=== PATIENT | female | born 1985 | race Caucasian/White ===

== ENCOUNTER 2017-05-24 06:35 | Inpatient (IN) | payer BC ==
[2017-05-24] MEDS ORDERED: DINOPROSTONE 10 MG VAGINAL SUPPOSITORY VG ONE (08:47)
[2017-05-24 08:49] VITALS: BMI 32.6
[2017-05-24] MEDS ORDERED: AMPICILLIN - 100 ML IVPB ONE (10:00)
[2017-05-24] MEDS ORDERED: TUBERCULIN PPD 5 TU/0.1ML SYRINGE (IN PATIENT USE ONLY) ID ONE (10:00)
[2017-05-24 10:11] LABS: BASOPHIL 0.7 % (0-2.0); EOSINOPHIL 0.9 % (0-4.5); MCHC 34.4 g/dl (32.0-36.0); MEAN CELL VOLUME 84.6 fl (80-96); MEAN PLT VOLUME 9.5 fl (7.5-11.1); NEUTROPHILS 66.6 % (42.8-82.8); PLATELET COUNT 260 K/MM3 (134-434); RDW 14.7 % (11.6-15.6); WHITE BLOOD COUNT 8.5 K/mm3 (4.0-10.0)
[2017-05-24 10:35] LABS: ANION GAP 7 (8-16); CALCIUM 9.1 mg/dL (8.5-10.1); CO2 23 mmol/L (21-32); CREATININE 0.5 mg/dL (0.55-1.02); GLUCOSE,RANDOM 83 mg/dL (74-106)
[2017-05-24 10:39] LABS: INR 0.91 (0.82-1.09)
[2017-05-24 10:42] LABS: ACTIVATED PTT 25.8 SECONDS (26.9-34.4)
[2017-05-24] MEDS ORDERED: ELECTROLYTE-148 SOLN 1,000 ML IV SCH (13:00)
[2017-05-24] MEDS: AMPICILLIN - 100 ML IVPB SCH ×2 (14:00→17:50)
[2017-05-24] MEDS ORDERED: FENTANYL/BUPIVACAINE/NS/PF - PCEA - 50 ML DISP.SYRIN EP SCH (14:15)
--- NOTE | 2017-05-24 14:58 | PN ---
Progress Note (short form) - Note Progress Note: cx 5 cm 80 vx -1 mi , luis alberto cardia and hypotension after epidural anesthesia, iv fluid, lt side, O2, anesthesia notified, arom, clear fluid, scalp electrode applied, fh good recovery with good BTB variability, bp corrected
--- NOTE | 2017-05-24 15:37 | HP ---
Past Medical History - Primary Care Physician PCP:: Cody Prescott - Admission Chief Complaint: 40 .3 weeks,for induction History of Present Illness: 32 yo f ab1 edc by nadeem 05/21/17, 40.3 weeks, requesting to be induced , because discomfort, rba discussed , agreed to have cervidil induction.cx 2 cm 50 vx -3 mi ,fhr cat 1. irregular contraction History Source: Patient Limitations to Obtaining History: No Limitations - Past Medical History ...: 2 ...Para: 0 ...LMP: 08/10/17 ...EDC by Nadeem: 05/21/17 - Past Surgical History Hx Myomectomy: No Hx Transabdominal Cerclage: No - Smoking History Smoking history: Never smoked Have you smoked in the past 12 months: No Aproximately how many cigarettes per day: 0 - Alcohol/Substance Use Hx Alcohol Use: No - Social History History of Recent Travel: No Home Medications - Allergies Allergies/Adverse Reactions: Allergies Allergy/AdvReac Type Severity Reaction Status Date / Time No Known Drug Allergies Allergy Verified 09/01/15 08:35 - Home Medications Home Medications: Ambulatory Orders Pnv #116/Iron Fumarate/FA/Dha [Expecta Combo Pack] 1 each PO DAILY Review of Systems - Review of Systems Constitutional: reports: No Symptoms Eyes: reports: No Symptoms HENT: reports: No Symptoms Neck: reports: No Symptoms Cardiovascular: reports: No Symptoms Respiratory: reports: No Symptoms Gastrointestinal: reports: No Symptoms Genitourinary: reports: No Symptoms Breasts: reports: No Symptoms Reported Integumentary: reports: No Symptoms Neurological: reports: No Symptoms Endocrine: reports: No Symptoms Hematology/Lymphatic: reports: No Symptoms Psychiatric: reports: No Symptoms Physical Exam - Maternity Vital Signs: Vital Signs Temperature 97.9 F 05/24/17 10:00 Pulse Rate 98 H 05/24/17 15:15 Respiratory Rate 05/24/17 15:15 Blood Pressure 116/66 05/24/17 15:15 O2 Sat by Pulse Oximetry (%) 98 05/24/17 15:15 Constitutional: Yes: Well Nourished, No Distress, Calm Eyes: Yes: WNL, Conjunctiva Clear, EOM Intact HENT: Yes: WNL, Atraumatic, Normocephalic Neck: Yes: WNL, Supple, Trachea Midline Cardiovascular: Yes: WNL, Regular Rate and Rhythm Breast(s): Yes: WNL - Abdominal Exam/OB Number of Fetuses: Single Presentation: Vertex Contractions: Yes Regularity: Irregular Intensity: Unaware Monitor Mode: External Heart Rate Location: [facility] Category: I Accelerations: Uniform Decelerations: None - Vaginal Exam/OB Vaginal Bleediing: No Speculum Exam: No Dilatation (cm): 2 cm Effacement (%): 50 Amniotic Membrane Status: Intact Presentation: Vertex/Position Station: -2 - Physical Exam Musculoskeletal: Yes: WNL Extremities: Yes: WNL Edema: Yes Edema: LLE: Trace, RLE: Trace Deep Tendon Reflex Grade: Normal +2 Psychiatric: Yes: WNL - Labs Lab Results: CBC, BMP 05/24/17 09:45 05/24/17 09:45 Hemorrhage Risk Assessment - Risk Factors Medium Risk Factors: Yes: None Risk Score: 1 Risk Level: Medium Risk Problem List - Problems (1) Postmaturity , 40-42 weeks gestation Code(s): O48.0 - POST-TERM (2) Elective induction of labor planned Code(s): HPU1309 - Assessment/Plan admit, fh monitoring, vervidil induction, rba discussed
--- NOTE | 2017-05-24 16:10 | PN ---
Progress Note (short form) - Note Progress Note: cx 7 cm, 100, vx 0 mr , fhr cat 1, accelartion with scalp stimulation Problem List - Problems (1) Postmaturity , 40-42 weeks gestation Code(s): O48.0 - POST-TERM (2) Elective induction of labor planned Code(s): [id number] -
--- NOTE | 2017-05-24 18:31 | PN ---
Progress Note (short form) - Note Progress Note: 9cm, 100 vx 0 mr, fhr cat 1contraction ,short, advised pitocin rba discussed Problem List - Problems (1) Postmaturity , 40-42 weeks gestation Code(s): O48.0 - POST-TERM (2) Elective induction of labor planned Code(s): [id number] -
[2017-05-24] MEDS ORDERED: OXYTOCIN 15 UNITS/ LR 250 ML 250 ML IVPB SCH (19:15)
--- NOTE | 2017-05-24 21:57 | PN ---
Progress Note (short form) - Note Progress Note: cx full 100 vx 0 mr , OP, , fhr 160, ,has been fulll fo 2 hours ,no descent with pushing , stop pitocin , advised c/s Problem List - Problems (1) Postmaturity , 40-42 weeks gestation Code(s): O48.0 - POST-TERM (2) Elective induction of labor planned Code(s): [id number] -
[2017-05-24] MEDS ORDERED: CITRIC ACID/SODIUM CITRATE 30 ML UNIT-DOSE CUP PO ONE (22:00)
[2017-05-24] MEDS ORDERED: METHYLERGONOVINE MALEATE 0.2 MG/1 ML AMP IM PRN (22:29)
[2017-05-24] MEDS ORDERED: BENZOCAINE 20% 57 GM BOTTLE TP PRN (22:29)
[2017-05-24] MEDS ORDERED: WITCH HAZEL 50% (TUCKS) 40 PAD/JAR PAD TP PRN (22:29)
[2017-05-24] MEDS ORDERED: BENZOCAINE 28 GM HEMORRHOIDAL OINTMENT PR PRN (22:29)
[2017-05-24] MEDS ORDERED: diphenhydrAMINE HCL 25 MG CAPSULE (FP) PO PRN (22:29)
[2017-05-24] MEDS ORDERED: OXYTOCIN 20 UNITS in 0.9% NS 1,000 ML IV SCH (22:30)
[2017-05-24 23:32] LABS: VENOUS PH 7.35 (7.32-7.42)
[2017-05-24] MEDS ORDERED: ONDANSETRON 4 MG/2 ML VIAL IVPB PRN (23:40)
[2017-05-25] MEDS: AMPICILLIN - 100 ML IVPB SCH (01:26)
[2017-05-25] MEDS: DEXTROSE 5%-LACTATED RINGERS 1,000 ML IV SCH ×2 (01:27→06:09)
[2017-05-25] MEDS ORDERED: CEFAZOLIN 1 GM/D5W 50 ML IVPB SCH (02:00)
--- NOTE | 2017-05-25 08:01 | PN ---
Progress Note (short form) - Note Progress Note: pod 1 s/p c/s CBC, BMP 05/24/17 09:45 Last Vital Signs Temp Pulse Resp BP Pulse Ox 99.4 F 106 H 18 136/68 99 05/25/17 05:58 05/25/17 05:58 05/25/17 05:58 05/25/17 05:58 05/25/17 00:30 has mild low abdominal pain abdomen soft, no rebound , no cva BS present incision dry, clean no calf tenderness no excess vaginal bleeding plan ambulate, cbc, pain management Problem List - Problems (1) Postmaturity , 40-42 weeks gestation Code(s): O48.0 - POST-TERM (2) Elective induction of labor planned Code(s): [id number] -
--- NOTE | 2017-05-25 08:08 | OP ---
DATE OF OPERATION: 05/24/2017 PREOPERATIVE DIAGNOSIS: , 40.3 weeks' gestation, Cervidil induction, failure to descend in second stage of labor. POSTOPERATIVE DIAGNOSIS: , 40.3 weeks' gestation, Cervidil induction, failure to descend in second stage of labor. PROCEDURE: Primary low-segment transverse section. SURGEON: Jeni oRe MD SPANISH INSTRUCTOR: RAMON Sanchez ANESTHESIA: Epidural. ANESTHESIOLOGIST: Keya Chaudhry DO ESTIMATED BLOOD LOSS: 500 mL DESCRIPTION OF OPERATION: Patient was taken to the operating room. Under adequate epidural anesthesia, abdomen and perineum were prepped and draped. Pfannenstiel abdominal skin incision was made. Abdominal wall was cut layer by layer until peritoneum was exposed and incised. Upon entering the abdominal cavity, lower uterine segment was identified and uterovesical fold of peritoneum established. Bladder was pushed down. Then, with the lower blade of the Ann-Marie retractor in the pelvis, a low transverse uterine incision was made. The incision extended laterally. Amniotic sac was entered; clear fluid. Head delivered from occiput posterior position. Nasopharynx was suctioned. Cord around the neck x1 reduced. Live baby girl was delivered without any difficulty. Placenta was delivered manually. Uterine cavity was cleaned out of remaining tissue. Uterine incision was closed in 2 layers, first layer with 0 Biosyn continuous suture, the second layer with 0 Biosyn imbricating the first layer. Bladder flap was closed with 0 Biosyn continuous suture. Both tubes and ovaries were checked, were normal. No active bleeding was seen. All the lap packs, sponge, and instrument counts were correct. Then, peritoneum was closed with 0 Biosyn continuous suture. Muscles were brought together with interrupted suture of 0 Biosyn. Fascia was closed with 0 Biosyn continuous suture, subcutaneous fat with interrupted suture of 0 Biosyn, and the skin was closed with 4-0 Biosyn subcuticular continuous suture. Patient tolerated the procedure well, left the OR in good condition. JENI ROE M.D. [id number]
[2017-05-25 08:18] LABS: BASOPHIL 0.3 % (0-2.0); EOSINOPHIL 0.1 % (0-4.5); MCH 28.2 pg (25.7-33.7); MCHC 33.2 g/dl (32.0-36.0); MEAN PLT VOLUME 9.3 fl (7.5-11.1); NEUTROPHILS 78.6 % (42.8-82.8); PLATELET COUNT 197 K/MM3 (134-434); RDW 15.1 % (11.6-15.6); WHITE BLOOD COUNT 11.2 K/mm3 (4.0-10.0)
[2017-05-25] MEDS ORDERED: CEFAZOLIN (PRE-DOCKED) 50 ML IVPB SCH (10:00)
[2017-05-25] MEDS: IBUPROFEN 800 MG/8 ML IJ IVPB PRN ×2 (11:19→18:32)
[2017-05-25] MEDS ORDERED: ACETAMINOPHEN 325 MG TABLET (FP) ONE (15:41)
[2017-05-25] MEDS: SIMETHICONE 80 MG TAB.CHEW (FP) PO PRN (15:43)
[2017-05-25] MEDS: ACETAMINOPHEN 325 MG TABLET (FP) PO PRN (15:45)
[2017-05-25] MEDS ORDERED: IBUPROFEN 800 MG/8 ML IJ IVPB ONE (17:04)
[2017-05-25] MEDS ORDERED: BISACODYL 10 MG SUPP.RECT RC PRN (22:29)
[2017-05-26] MEDS: SIMETHICONE 80 MG TAB.CHEW (FP) PO PRN ×5 (02:57→21:45)
[2017-05-26] MEDS: IBUPROFEN 600 MG TABLET (FP) PO PRN ×4 (02:57→18:01)
[2017-05-26] MEDS: ACETAMINOPHEN 325 MG TABLET (FP) PO PRN ×5 (02:57→21:45)
--- NOTE | 2017-05-26 11:59 | PN ---
Progress Note (short form) - Note Progress Note: pod 2 doing well, ambulating, passing gas Last Vital Signs Temp Pulse Resp BP Pulse Ox 99.1 F 96 H 18 109/47 99 05/25/17 21:45 05/25/17 21:45 05/25/17 21:45 05/25/17 21:45 05/25/17 00:30 Last Vital Signs Temp Pulse Resp BP Pulse Ox 99.1 F 96 H 18 109/47 99 05/25/17 21:45 05/25/17 21:45 05/25/17 21:45 05/25/17 21:45 05/25/17 00:30 abdomen soft, no distension, no cva . incision dry, clean no calf tenderness plan ambulate, pain management Problem List - Problems (1) Postmaturity , 40-42 weeks gestation Code(s): O48.0 - POST-TERM (2) Elective induction of labor planned Code(s): [id number] -
--- NOTE | 2017-05-26 16:38 | PN ---
Progress Note (short form) - Note Progress Note: Anesthesiology post op check S/p c section post op day 1 under epidural anesthesia with duramorph for post op pain control Patient reports adequate pain control, no nausea or vomiting and full return of motor function. Vital Signs Temperature 99.1 F 05/25/17 21:45 Pulse Rate 96 H 05/25/17 21:45 Respiratory Rate 18 05/25/17 21:45 Blood Pressure 109/47 05/25/17 21:45 O2 Sat by Pulse Oximetry (%) 99 05/25/17 00:30 No sign of neurologic deficits A/P no adverse effects of anesthetic, dept of anesthesia will sign off care at this time, Feel free to re consult the department with further questions or concerns regarding pain or the anesthetic administered.
[2017-05-26] MEDS: oxyCODONE HCL 5 MG TABLET PO PRN (21:45)
[2017-05-26] MEDS ORDERED: SENNOSIDES/DOCUSATE COMBO (SENNA PLUS) TABLET (UD) PO PRN (22:00)
[2017-05-27] MEDS: oxyCODONE HCL 5 MG TABLET PO PRN ×5 (02:10→22:04)
[2017-05-27] MEDS: ACETAMINOPHEN 325 MG TABLET (FP) PO PRN ×2 (02:11→06:25)
[2017-05-27 10:05] LABS: BASOPHIL 0.6 % (0-2.0); EOSINOPHIL 3.3 % (0-4.5); MCHC 34.2 g/dl (32.0-36.0); MEAN PLT VOLUME 8.9 fl (7.5-11.1); NEUTROPHILS 63.7 % (42.8-82.8); PLATELET COUNT 229 K/MM3 (134-434); RDW 15.2 % (11.6-15.6)
[2017-05-27] MEDS: IBUPROFEN 600 MG TABLET (FP) PO PRN ×3 (11:15→22:04)
[2017-05-27] MEDS: SIMETHICONE 80 MG TAB.CHEW (FP) PO PRN ×3 (11:17→22:04)
--- NOTE | 2017-05-27 12:40 | PN ---
Progress Note (short form) - Note Progress Note: pod 3 , s/p c/s abdomen soft, mild incisional tenderness , no cva incision dry, clean no calf tenderness CBC, BMP 05/27/17 08:50 05/24/17 09:45 Last Vital Signs Temp Pulse Resp BP Pulse Ox 98.0 F 90 20 130/89 99 05/26/17 22:00 05/26/17 22:00 05/26/17 22:00 05/26/17 22:00 05/25/17 00:30 plan ambulate, pain management Problem List - Problems (1) Postmaturity , 40-42 weeks gestation Code(s): O48.0 - POST-TERM (2) Elective induction of labor planned Code(s): [id number] -
--- NOTE | 2017-05-28 07:45 | DS ---
Physical Exam-ROOFING APPRENTICE Vital Signs: Vital Signs Temperature 98.1 F 05/27/17 22:00 Pulse Rate 82 05/27/17 22:00 Respiratory Rate 18 05/27/17 22:00 Blood Pressure 124/78 05/27/17 22:00 O2 Sat by Pulse Oximetry (%) 99 05/25/17 00:30 Constitutional: Yes: Well Nourished, No Distress, Calm Eyes: Yes: WNL, Conjunctiva Clear, EOM Intact HENT: Yes: WNL, Atraumatic, Normocephalic Neck: Yes: WNL, Supple, Trachea Midline Cardiovascular: Yes: WNL, Regular Rate and Rhythm Respiratory: Yes: WNL, Regular, CTA Bilaterally Gastrointestinal: Yes: WNL ...Rectal Exam: Yes: WNL Renal/: Yes: WNL ....Post : Yes: Uterus firm, Uterus non-tender, Slight lochia rubra Breast(s): Yes: WNL Musculoskeletal: Yes: WNL Extremities: Yes: WNL Edema: LLE: Trace, RLE: Trace Integumentary: Yes: WNL Wound/Incision: Yes: Clean/Dry, Well Approximated, Sutures Intact Neurological: Yes: WNL, Alert, Oriented ...Motor Strength: WNL Psychiatric: Yes: WNL, Alert, Oriented Labs: CBC, BMP 05/27/17 08:50 05/24/17 09:45 Delivery - Delivery Section: Primary, Low Flap Transverse (no complication) Type of Anesthesia: Epidural Episiotomy/Laceration: None EBL (cc): 500 Delivery, Single - Stages of Labor Date 1st Stage Initiatied: 05/24/17 Time 1st Stage Initiated: 06:35 Date of Delivery: 05/24/17 Time of Delivery: 22:48 Time Placenta Delivered: 22:49 Placenta: Yes: Expressed - Condition of Infant Tile Burner/Unit Manager Rn Present: Yes Name: Fela Hernandez Infant Gender: Female Weight: 7 lb 15 oz Position: OA Total Hours ROM (Hrs/Mins): 8HRS.3MINS - 1 Minute Total Score: 9 5 Minutes Total Score: 9 - Feeding Plan Initial Plan: Exclusive throughout hospitalization Discharge Summary Reason For Visit: ADMIT-INDUCTION Current Active Problems Elective induction of labor planned (Acute) Postmaturity , 40-42 weeks gestation (Acute) Procedures: Principal: primary LST c/s Hospital Course: uneventful Condition: Good - Instructions Diet, Activity, Other Instructions: regular diet, follow up ofice 1 week Referrals: Cody Prescott MD [Staff Physician] - Disposition: HOME - Home Medications Comprehensive Discharge Medication List: Ambulatory Orders Pnv #116/Iron Fumarate/FA/Dha [Expecta Combo Pack] 1 each PO DAILY Ibuprofen [Motrin -] 600 mg PO QID #28 tablet 05/27/17
[2017-05-28] MEDS ORDERED: oxyCODONE HCL 5 MG TABLET PO PRN (08:04)
[2017-05-28] MEDS: SIMETHICONE 80 MG TAB.CHEW (FP) PO PRN (08:06)
[2017-05-28] MEDS: IBUPROFEN 600 MG TABLET (FP) PO PRN (08:06)
[2017-05-28] MEDS: oxyCODONE HCL 5 MG TABLET PO PRN (08:07)
[2017-05-28 13:24] VITALS: BP 123/64; PULSE 85; TEMP 98.8
--- NOTE | 2017-05-28 15:09 | PATH ---
Surgical Pathology Report Patient Name: BRADLEY GAYTAN Med. Rec. #: [id number] /Age/Gender: 1985 (Age: 32) / F Account: [id number] Location: [facility] OBS/CLEANING TEAM MEMBER Taken: 05/24/2017 Received: 05/25/2017 Reported: 05/28/2017 Physicians: Cody Prescott M.D. Specimen(s) Received PLACENTA Clinical History , 39.4 week gestation; Rh- Primary c/section for arrest of labor Final Diagnosis PLACENTA, DELIVERY: FOCALLY DISRUPTED THIRD TRIMESTER PLACENTA WITH MODERATE PREVILLOUS, PERIVILLOUS, AND PRECHORIONIC FIBRIN DEPOSITION, THREE VESSEL UMBILICAL CORD, AND PLACENTAL MEMBRANES WITH FOCAL ACUTE CHORIOAMNIONITIS AND FOCAL ACUTE INFLAMMATION OF CHORIONIC PLATE. Electronically Signed Remi Dunn M.D. Gross Description The specimen is received fresh, labeled "placenta" and is a 434 gram, 25.0 x 17.0 x 1.5 cm placenta with attached membranes and umbilical cord. The attached membranes are caldwell, translucent with focal opacities and insert marginally. The umbilical cord measures 33 cm in length and averages 1 cm in diameter. The cord inserts eccentrically, 3.5 cm to the nearest margin. No true knots or strictures are identified. Cut surface of the umbilical cord reveals 3 vessels. The surface is negron-blue with fibrin deposition and appropriate caliber vessels. The maternal surface is red-brown with focal defects. Sectioning reveals red-brown, spongy parenchyma. No focal lesions are identified. Component Assembler Supervisor sections are submitted in three cassettes as follows: 1- membrane rolls and umbilical cord; 2-3- full thickness sections of placenta. /05/25/2017 [facility]05/25/2017
== END 2017-05-28 13:20 | disposition home or self-care (01) | DRG 765 ==
LOC: JLDR 06:35 → J3W 05-25 01:00
PROVIDERS: ADMIT Obstetrics & Gynecology; ATTEND Obstetrics & Gynecology
PROC: 10D00Z1 Extraction of Products of Conception, Low, Open Approach (ICD-10-PCS; principal; 2017-05-24)
DX: O62.1 Secondary uterine inertia (principal); O41.1230 Chorioamnionitis, third trimester, not applicable or unspecified; O48.0 Post-term pregnancy; Z3A.40 40 weeks gestation of pregnancy; Z37.0 Single live birth
CPT/HCPCS: 36415; 36600; 80048; 82803; 85025; 85610; 85730; 86593; 86850; 86870; 86900; 86901; 86902; 87086; 88307-TC

== ENCOUNTER 2019-06-24 06:30 | Inpatient (IN) | payer BC ==
[2019-06-24] MEDS ORDERED: ELECTROLYTE-148 SOLN 1,000 ML IV SCH (07:00)
[2019-06-24] MEDS ORDERED: CITRIC ACID/SODIUM CITRATE 30 ML UNIT-DOSE CUP PO ONE (07:00)
--- NOTE | 2019-06-24 07:07 | HP ---
Past Medical History - Primary Care Physician PCP:: Cody Prescott - Admission Chief Complaint: 39 weeks, previous c/s for repeat c/s History of Present Illness: 34 yo f 39 weeks with previous c/s requesting repeat c/s , cx clp vx - 3 mi, fhr cat 1,no contraction History Source: Patient Limitations to Obtaining History: No Limitations - Past Medical History ...: 3 ...Para: 1 ...Spon : 1 - Past Surgical History Past Surgical History: Yes: Hx Myomectomy: No Hx Transabdominal Cerclage: No - Smoking History Smoking history: Never smoked Have you smoked in the past 12 months: No Aproximately how many cigarettes per day: 0 - Alcohol/Substance Use Hx Alcohol Use: No History of Substance Use: reports: None - Social History Usual Living Arrangement: Yes: With Spouse History of Recent Travel: No Home Medications - Allergies Allergies/Adverse Reactions: Allergies Allergy/AdvReac Type Severity Reaction Status Date / Time No Known Drug Allergies Allergy Verified 09/01/15 08:35 - Home Medications Home Medications: Ambulatory Orders No.116/Iron/Folic/Dha [Expecta Combo Pack] 1 each PO DAILY Ibuprofen [Motrin -] 600 mg PO QID #28 tablet 05/27/17 NK [No Known Home Medication] 01/27/19 Review of Systems - Review of Systems Constitutional: reports: No Symptoms Eyes: reports: No Symptoms HENT: reports: No Symptoms Neck: reports: No Symptoms Cardiovascular: reports: No Symptoms Respiratory: reports: No Symptoms Gastrointestinal: reports: No Symptoms Genitourinary: reports: No Symptoms Breasts: reports: No Symptoms Reported Musculoskeletal: reports: No Symptoms Integumentary: reports: No Symptoms Neurological: reports: No Symptoms Endocrine: reports: No Symptoms Hematology/Lymphatic: reports: No Symptoms Psychiatric: reports: No Symptoms Physical Exam - Maternity Constitutional: Yes: Well Nourished, No Distress, Calm Eyes: Yes: WNL, Conjunctiva Clear, EOM Intact HENT: Yes: WNL, Atraumatic, Normocephalic Neck: Yes: WNL, Supple, Trachea Midline Cardiovascular: Yes: WNL, Regular Rate and Rhythm Breast(s): Yes: WNL - Abdominal Exam/OB Fundal Height: 38 Number of Fetuses: Single Presentation: Vertex Contractions: No Intensity: Unaware Monitor Mode: External Heart Rate Location: [facility] Category: I Accelerations: Non-Uniform Decelerations: None - Vaginal Exam/OB Vaginal Bleediing: No Speculum Exam: No Dilatation (cm): closed Effacement (%): 0 Amniotic Membrane Status: Intact Presentation: Vertex/Position Station: -3 - Physical Exam Musculoskeletal: Yes: WNL Extremities: Yes: WNL Edema: LLE: Trace, RLE: Trace Integumentary: Yes: WNL Deep Tendon Reflex Grade: Normal +2 ...Motor Strength: WNL Psychiatric: Yes: WNL Hemorrhage Risk Assessment - Risk Factors Medium Risk Factors: Yes: Prior , uterine surgery,or multiple laparotomies Risk Score: 1 Risk Level: Medium Risk Problem List - Problems (1) with 39 completed weeks gestation Code(s): Z3A.39 - 39 WEEKS GESTATION OF (2) Previous section complicating Code(s): O34.219 - MATERNAL CARE FOR UNSP TYPE SCAR FROM PREVIOUS DEL Assessment/Plan admit for repeat c/s, vs repeat c/s fabio and ainsley has discussed with patient
[2019-06-24 07:39] VITALS: BMI 29.0
[2019-06-24] MEDS ORDERED: morphine SULFATE/PF 0.5 MG/ML (2cc Syringe - QUVA) ONE (08:15)
[2019-06-24] MEDS ORDERED: morphine SULFATE/PF 0.5 MG/ML (2cc Syringe - QUVA) SPIN ONE (08:20)
[2019-06-24] MEDS ORDERED: ceFAZolin SODIUM 1 GM VIAL ONE (08:27)
[2019-06-24] MEDS ORDERED: DEXAMETHASONE SOD PHOSPHATE 4 MG/1 ML VIAL ONE (08:45)
[2019-06-24] MEDS ORDERED: KETOROLAC TROMETHAMINE 30 MG/1 ML VIAL ONE (08:45)
[2019-06-24] MEDS ORDERED: IBUPROFEN 600 MG TABLET (FP) PO PRN (09:02)
[2019-06-24] MEDS ORDERED: ONDANSETRON 4 MG/2 ML VIAL IVPUSH PRN ×2 (09:02)
[2019-06-24] MEDS ORDERED: ACETAMINOPHEN 1000 MG/100 ML VIAL (NON FORMULARY) IVPB ONE (09:07)
[2019-06-24] MEDS ORDERED: LACTATED RINGERS SOLUTION 1,000 ML IV SCH (09:15)
[2019-06-24] MEDS ORDERED: OXYTOCIN 20 UNITS in 0.9% NS 20 UNIT/1,000 ML INFUS.BAG IV ONE (09:34)
[2019-06-24] MEDS ORDERED: BENZOCAINE 20% 57 GM BOTTLE TP PRN (09:48)
[2019-06-24] MEDS ORDERED: BENZOCAINE 28 GM HEMORRHOIDAL OINTMENT PR PRN (09:48)
[2019-06-24] MEDS ORDERED: diphenhydrAMINE HCL 25 MG CAPSULE (FP) PO PRN (09:48)
[2019-06-24] MEDS ORDERED: WITCH HAZEL 50% (TUCKS) 40 PAD/JAR PAD TP PRN (09:48)
[2019-06-24] MEDS ORDERED: METHYLERGONOVINE MALEATE 0.2 MG/1 ML AMP IM PRN (09:48)
--- NOTE | 2019-06-24 09:56 | OP ---
Operative Note - Note: Operative Date: 06/24/19 Pre-Operative Diagnosis: 39 weeks, previous c/s Operation: repeat LST c/s Findings: live baby girl 9/p , ROT position, cord around neck once Surgeon: Cody Prescott Hosiery Pairer: Kayode Gee Anesthesia: Spinal Specimens Removed: placenta Estimated Blood Loss (mls): 500 Drains & Tubes with Location: [facility] Operative Report Dictated: Yes
[2019-06-24] MEDS ORDERED: OXYTOCIN 20 UNITS in 0.9% NS 1,000 ML IV SCH (10:00)
[2019-06-24] MEDS ORDERED: DEXTROSE 5%-LACTATED RINGERS 1,000 ML IV SCH (10:00)
[2019-06-24] MEDS ORDERED: OXYTOCIN 20 UNITS in 0.9% NS 20 UNIT/1,000 ML INFUS.BAG IV SCH (10:00)
[2019-06-24] MEDS: IBUPROFEN 800 MG/8 ML IJ IVPB PRN ×2 (13:04→21:28)
--- NOTE | 2019-06-24 13:45 | OP ---
DATE OF OPERATION: 06/24/2019 PREOPERATIVE DIAGNOSIS: 39 weeks, previous section, request of repeat section. POSTOPERATIVE DIAGNOSIS: 39 weeks, previous section, request of repeat section. PROCEDURE: Repeat low segment transverse section. SURGEON: Jeni Prescott MD BREW HOUSE SUPERVISOR: Kayode Gee MD ANESTHESIA: Spinal. ANESTHESIOLOGIST: Zoran Dick MD FINDINGS: A live baby girl, ROT position, Apgars 9, 9. Cord around the neck x1. DESCRIPTION OF PROCEDURE: Patient was taken to the operating room under adequate spinal anesthesia. Abdomen and perineum were prepped and draped. A Pfannenstiel abdominal skin incision was made. The abdominal wall was cut layer by layer until the peritoneum was exposed and incised. Upon entering the abdominal cavity, lower uterine segment was identified and uterovesical fold of peritoneum established. Bladder was pushed down. Then with the lower blade of the Ann-Marie retractor in the pelvis, uterovesical fold in peritoneum was established, and bladder was pushed down. Uterine incision was made with a knife and extended laterally with bandage scissors. Amniotic sac was entered. Clear fluid. Head delivered. Cord around the neck x1 reduced. Nasopharynx was suctioned, and live baby girl was delivered without any difficulty. Placenta was delivered manually. Uterine cavity was cleaned of all remaining tissue. Uterine incision was closed in 2 layers, the 1st layer with 0 Biosyn continuous suture, the 2nd layer with 0 Biosyn imbricating the 1st layer. Bladder flap was closed with 0 Biosyn continuous suture. Both tubes and ovaries were checked and normal. No active bleeding was seen. All of the lap pad, sponge, and instrument counts were correct, and peritoneum was closed with 0 Biosyn continuous suture. Muscles were brought together with interrupted sutures of 0 Biosyn. Fascia was closed with 0 Biosyn continuous suture, subcutaneous fat interrupted suture of 0 Biosyn, and the skin was closed with 3-0 Biosyn subcuticular continuous sutures. Patient tolerated the procedure well, left the OR in good condition. JENI PRESCOTT M.D. [id number]
[2019-06-24] MEDS: CEFAZOLIN 1 GM/D5W 1 GM/50 ML BAG IVPB SCH (17:15)
[2019-06-25] MEDS: CEFAZOLIN 1 GM/D5W 1 GM/50 ML BAG IVPB SCH (01:29)
[2019-06-25] MEDS: IBUPROFEN 800 MG/8 ML IJ IVPB PRN (03:05)
[2019-06-25 08:35] LABS: BASO % 0.6 % (0-2.0); EOS % 1.1 % (0-4.5); HEMATOCRIT 28.5 % (32.4-45.2); HEMOGLOBIN 9.7 GM/dL (10.7-15.3); LYMPH % 20.4 % (8-40); MCH 29.4 pg (25.7-33.7); MEAN CELL VOLUME 86.4 fl (80-96); MEAN PLT VOLUME 8.8 fl (7.5-11.1); NEUT % 67.9 % (42.8-82.8); PLATELET COUNT 214 K/MM3 (134-434); RDW 13.8 % (11.6-15.6); WHITE BLOOD COUNT 7.9 K/mm3 (4.0-10.0)
[2019-06-25] MEDS: SIMETHICONE 80 MG TAB.CHEW (FP) PO PRN ×4 (08:55→21:26)
[2019-06-25] MEDS: IBUPROFEN 600 MG TABLET (FP) PO PRN ×4 (08:55→21:24)
[2019-06-25] MEDS: ACETAMINOPHEN 325 MG TABLET (FP) PO PRN ×2 (08:56→15:18)
[2019-06-25] MEDS ORDERED: BISACODYL 10 MG SUPP.RECT RC PRN (09:48)
[2019-06-25] MEDS: ENOXAPARIN NA (PORCINE) 40 MG/0.4 ML DISP.SYRIN SQ SCH (10:31)
--- NOTE | 2019-06-25 11:01 | PN ---
Progress Note (short form) - Note Progress Note: Anesthesia Post Op Note Pt seen s/p spinal for repeat c/section Pt awake alert sitting Pt denies n/v, h/a, back pain Tolerating po well, ambulating, no urinary retention, pain well controlled VSS no apparent anesthesia complications Norbert Dick.
[2019-06-25] MEDS: oxyCODONE HCL 5 MG TABLET PO PRN ×3 (12:54→21:22)
--- NOTE | 2019-06-25 18:11 | PN ---
Post Progress Note - Subjective Subjective: No complaints. Pain well controlled. Passing flatus. Breast feeding w/o problems. Post Day: 1 Type of Delivery: Repeat C/S Vital Signs: Vital Signs Temperature 98.1 F 06/25/19 10:00 Pulse Rate 83 06/25/19 10:00 Respiratory Rate 18 06/25/19 10:00 Blood Pressure 112/66 06/25/19 10:00 O2 Sat by Pulse Oximetry (%) 97 06/24/19 10:15 Breast Exam: Yes: Soft Uterus: Yes: Fundus Firm, Fundus below umbilicus, Non-tender Incision: Yes: Dressing dry and intact Abdomen/GI: Yes: Abdomen soft, Passing flatus, Tolerating PO Lochia: Yes: Rubra Lochia, amount: Small Extremities: Yes: Calves non-tender Perineum: Yes: Intact Activity: Ambulating - Labs Labs: CBC WBC 7.9 K/mm3 (4.0-10.0) 06/25/19 08:05 RBC 3.30 M/mm3 (3.60-5.2) L 06/25/19 08:05 Hgb 9.7 GM/dL (10.7-15.3) L 06/25/19 08:05 Hct 28.5 % (32.4-45.2) L D 06/25/19 08:05 MCV 86.4 fl (80-96) 06/25/19 08:05 MCH 29.4 pg (25.7-33.7) 06/25/19 08:05 MCHC 34.0 g/dl (32.0-36.0) 06/25/19 08:05 RDW 13.8 % (11.6-15.6) 06/25/19 08:05 Plt Count 214 K/MM3 (134-434) D 06/25/19 08:05 MPV 8.8 fl (7.5-11.1) 06/25/19 08:05 Absolute Neuts (auto) 5.4 K/mm3 (1.5-8.0) 06/25/19 08:05 Neutrophils % 67.9 % (42.8-82.8) 06/25/19 08:05 Lymphocytes % 20.4 % (8-40) 06/25/19 08:05 Monocytes % 10.0 % (3.8-10.2) 06/25/19 08:05 Eosinophils % 1.1 % (0-4.5) D 06/25/19 08:05 Basophils % 0.6 % (0-2.0) 06/25/19 08:05 Nucleated RBC % 0 % (0-0) 06/25/19 08:05 Assessment/Plan POD # 1 s/p repeat LT C/S Pt is stable and afebrile. She is asymptomatic for anemia Advised to ambulate. Advance diet. Asymptomatic for anemia
[2019-06-26] MEDS: SIMETHICONE 80 MG TAB.CHEW (FP) PO PRN ×3 (03:18→22:31)
[2019-06-26] MEDS: oxyCODONE HCL 5 MG TABLET PO PRN ×5 (03:18→22:31)
[2019-06-26] MEDS: IBUPROFEN 600 MG TABLET (FP) PO PRN ×4 (03:18→22:31)
--- NOTE | 2019-06-26 06:19 | PN ---
Progress Note (short form) - Note Progress Note: pod 2 s/p repeat c/s, doing well, passing gas . ambulating abdomen soft, no distension, no cva incision dry, clean no calf tenderness plan ambulate , cbc in am pain management Problem List - Problems (1) with 39 completed weeks gestation Code(s): Z3A.39 - 39 WEEKS GESTATION OF (2) Previous section complicating Code(s): O34.219 - MATERNAL CARE FOR UNSP TYPE SCAR FROM PREVIOUS DEL
[2019-06-26] MEDS: ENOXAPARIN NA (PORCINE) 40 MG/0.4 ML DISP.SYRIN SQ SCH (09:34)
[2019-06-26] MEDS: ACETAMINOPHEN 325 MG TABLET (FP) PO PRN ×2 (11:29→18:09)
[2019-06-26] MEDS ORDERED: SENNOSIDES/DOCUSATE COMBO (SENNA PLUS) TABLET (UD) PO PRN (22:00)
--- NOTE | 2019-06-27 06:29 | PN ---
Progress Note (short form) - Note Progress Note: pod 3 ,doing well, ambulating, had BM , no excess vaginal bleeding Last Vital Signs Temp Pulse Resp BP Pulse Ox 98.3 F 93 H 18 125/71 97 06/26/19 22:00 06/26/19 22:00 06/26/19 22:00 06/26/19 22:00 06/24/19 10:15 CBC, BMP 06/25/19 08:05 Last Vital Signs Temp Pulse Resp BP Pulse Ox 98.3 F 93 H 18 125/71 97 06/26/19 22:00 06/26/19 22:00 06/26/19 22:00 06/26/19 22:00 06/24/19 10:15 abdomen soft, no distension, no cva , BS present lochia mild no calf tenderness plan ambulate , observe cbc Problem List - Problems (1) with 39 completed weeks gestation Code(s): Z3A.39 - 39 WEEKS GESTATION OF (2) Previous section complicating Code(s): O34.219 - MATERNAL CARE FOR UNSP TYPE SCAR FROM PREVIOUS DEL
--- NOTE | 2019-06-27 06:47 | DS ---
Physical Exam-MDS COORDINATOR Vital Signs: Vital Signs Temperature 98.3 F 06/26/19 22:00 Pulse Rate 93 H 06/26/19 22:00 Respiratory Rate 18 06/26/19 22:00 Blood Pressure 125/71 06/26/19 22:00 O2 Sat by Pulse Oximetry (%) 97 06/24/19 10:15 Constitutional: Yes: Well Nourished, No Distress, Calm Eyes: Yes: WNL, Conjunctiva Clear, EOM Intact HENT: Yes: WNL, Atraumatic, Normocephalic Neck: Yes: WNL, Supple, Trachea Midline Cardiovascular: Yes: WNL, Regular Rate and Rhythm Respiratory: Yes: WNL, Regular, CTA Bilaterally Gastrointestinal: Yes: WNL ...Rectal Exam: Yes: WNL Renal/: Yes: WNL ....Post : Yes: Uterus firm, Uterus non-tender, Slight lochia rubra Breast(s): Yes: WNL Musculoskeletal: Yes: WNL Extremities: Yes: WNL Edema: No Integumentary: Yes: WNL Wound/Incision: Yes: Clean/Dry, Well Approximated, Sutures Intact Neurological: Yes: WNL, Alert, Oriented ...Motor Strength: WNL Psychiatric: Yes: WNL, Alert, Oriented Labs: CBC, BMP 06/25/19 08:05 Delivery - Delivery Section: Repeat, Low Flap Transverse Type of Anesthesia: Spinal Episiotomy/Laceration: None EBL (cc): 500 Delivery, Single - Stages of Labor Date of Delivery: 06/24/19 Time of Delivery: 08:39 Time Placenta Delivered: 08:40 Placenta: Yes: Expressed - Condition of Infant [employer] Taper/Intern Present: Yes Name: Pao Dean Infant Gender: Female Weight: 7 lb 1 oz Position: Right, OT Total Hours ROM (Hrs/Mins): 2mins - 1 Minute Total Score: 9 5 Minutes Total Score: 9 - Rhine Feeding Plan Initial Plan: Elected not to breastfeed exclusively throughout hospitalization Discharge Summary Reason For Visit: ADMIT C/SECTION Current Active Problems with 39 completed weeks gestation (Acute) Previous section complicating (Acute) Procedures: Principal: repeat LST c/s Hospital Course: no complication Condition: Good - Instructions Diet, Activity, Other Instructions: regular diet, follow up office 1 week, if pain, heavy vaginal bleeding , fever , call md Referrals: Cody Prescott MD [Staff Physician] - Disposition: HOME - Home Medications Comprehensive Discharge Medication List: Ambulatory Orders No.116/Iron/Folic/Dha [Expecta Combo Pack] 1 each PO DAILY Ibuprofen [Motrin -] 600 mg PO QID #28 tablet 05/27/17 Ibuprofen [Motrin -] 600 mg PO QID #28 tablet 06/27/19
[2019-06-27] MEDS: SIMETHICONE 80 MG TAB.CHEW (FP) PO PRN (07:42)
[2019-06-27] MEDS: oxyCODONE HCL 5 MG TABLET PO PRN (07:42)
[2019-06-27] MEDS: IBUPROFEN 600 MG TABLET (FP) PO PRN (07:43)
[2019-06-27 09:29] LABS: BASO % 0.5 % (0-2.0); EOS % 2.2 % (0-4.5); HEMATOCRIT 32.4 % (32.4-45.2); HEMOGLOBIN 10.8 GM/dL (10.7-15.3); LYMPH % 21.9 % (8-40); MCHC 33.4 g/dl (32.0-36.0); MEAN CELL VOLUME 86.8 fl (80-96); MEAN PLT VOLUME 8.5 fl (7.5-11.1); MONO % 7.2 % (3.8-10.2); NEUT % 68.2 % (42.8-82.8); PLATELET COUNT 282 K/MM3 (134-434); RBC 3.73 M/mm3 (3.60-5.2); RDW 14.2 % (11.6-15.6); WHITE BLOOD COUNT 7.6 K/mm3 (4.0-10.0)
[2019-06-27] MEDS: ENOXAPARIN NA (PORCINE) 40 MG/0.4 ML DISP.SYRIN SQ SCH (10:05)
[2019-06-27 10:14] VITALS: BP 113/66; PULSE 80; TEMP 98.1
--- NOTE | 2019-06-30 13:41 | PATH ---
Surgical Pathology Report Patient Name: BRADLEY GAYTAN Med. Rec. 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 Specimen(s) Received PLACENTA Clinical History 39.1 weeks, history of in 2017, adenoidectomy at age 9 Final Diagnosis PLACENTA: THIRD TRIMESTER PLACENTA. TRIVASCULAR CORD. MEMBRANES WITH NO DIAGNOSTIC ABNORMALITIES. Electronically Signed Lissa Gates M.D. Gross Description The specimen is received fresh labeled placenta and is a 397 gram, 18 x17 x 1.8cm. placenta with attached membranes and umbilical cord. The attached membranes are glistening, translucent, and insert marginally. The umbilical cord measures 49 cm. in length and averages 1.0 cm. in diameter. The cord inserts centrally, 6 centimeter to the nearest margin. No true knots or strictures are identified. Cut surface of the umbilical cord reveals 3 vessels. Sectioning reveals red-brown, spongy parenchyma. No lesions are identified. Liquid Flavor Compounder sections are submitted in three cassettes as follows: 1- membrane rolls and umbilical cord; 2-3- full thickness sections of placenta KWS/06/25/2019 songki06/25/2019
== END 2019-06-27 11:15 | disposition home or self-care (01) | DRG 788 ==
LOC: JLDR 06:30 → J3W 10:43
PROVIDERS: ADMIT Obstetrics & Gynecology; ATTEND Obstetrics & Gynecology
PROC: 10D00Z1 Extraction of Products of Conception, Low, Open Approach (ICD-10-PCS; principal; 2019-06-24)
PROC: 3E0334Z Introduction of Serum, Toxoid and Vaccine into Peripheral Vein, Percutaneous Approach (ICD-10-PCS; 2019-06-24)
DX: O34.211 Maternal care for low transverse scar from previous cesarean delivery (principal); N85.8 Other specified noninflammatory disorders of uterus; Z3A.39 39 weeks gestation of pregnancy; Z37.0 Single live birth; Z29.13 Encounter for prophylactic Rho(D) immune globulin
CPT/HCPCS: 36415; 85025; 85461; 86999; 88307-TC; J0131

== ENCOUNTER 2020-08-31 15:51 | Emergency (ER) | payer BC | END 2020-08-31 17:24 | disposition home or self-care (01) | LOC: JVIRT 15:51 | DX: Z11.59 Encounter for screening for other viral diseases (principal) | CPT/HCPCS: C9803; Q3014-GT; U0003 ==

== ENCOUNTER 2020-09-07 18:19 | Emergency (ER) | payer BC | END 2020-09-07 18:45 | disposition home or self-care (01) | LOC: JVIRT 18:19 | DX: Z11.59 Encounter for screening for other viral diseases (principal) | CPT/HCPCS: C9803; Q3014-GT; U0003 ==

== ENCOUNTER 2022-04-28 14:24 | Emergency (ER) | payer BC ==
[2022-04-28 14:41] VITALS: BP 119/90; RESP 16; TEMP 99.1; BMI 23.6
[2022-04-28 15:12] VITALS: PULSE 100
[2022-04-28 16:18] LABS: HEMATOCRIT 35.4 % (32.4-45.2); HEMOGLOBIN 12.4 G/dL (10.7-15.3); MCH 29.4 pg (25.7-33.7); MCHC 35.1 g/dl (32.0-36.0); MEAN CELL VOLUME 83.9 fl (80-96); MEAN PLT VOLUME 7.9 fl (7.5-11.1); PLATELET COUNT 257.7 10^3/uL (134-434); RBC 4.22 10^6/uL (3.60-5.2); RDW 14.5 % (11.6-15.6); WHITE BLOOD COUNT 3.2 10^3/uL (4.0-10.8)
[2022-04-28 16:33] LABS: BILIRUBIN,TOTAL 0.3 mg/dl (0.2-1); CALCIUM 9.3 mg/dl (8.5-10); CREATININE 0.7 mg/dl (0.55-1.3); TOT PROT 6.8 g/dl (6.4-8.2)
[2022-04-28 16:34] LABS: PLATELET ESTIMATE ADEQUATE
== END 2022-04-28 17:29 | disposition home or self-care (01) ==
LOC: FER 14:24
DX: U07.1 COVID-19 (principal)
CPT/HCPCS: 36415; 71045-TC-FY; 80053; 85027; 85379; 99284-25

== ENCOUNTER 2024-03-25 03:57 | Day surgery (SDC) | payer BC ==
[2024-03-21 15:53] VITALS: BMI 24.1
[2024-03-25] MEDS ORDERED: ONDANSETRON 4 MG/2 ML VIAL IVPUSH PRN ×2 (08:42→10:59)
[2024-03-25] MEDS ORDERED: oxyCODONE HCL 5 MG TABLET PO PRN ×2 (08:42→10:59)
[2024-03-25] MEDS ORDERED: LACTATED RINGERS SOLUTION 1,000 ML IV SCH (08:45)
[2024-03-25] MEDS ORDERED: KETOROLAC TROMETHAMINE 30 MG/1 ML VIAL ONE (09:23)
[2024-03-25] MEDS ORDERED: DEXAMETHASONE SOD PHOSPHATE 4 MG/1 ML VIAL ONE (09:23)
[2024-03-25] MEDS ORDERED: LIDOCAINE HCL/PF 2% SDV 5ML VIAL ONE (09:23)
[2024-03-25] MEDS ORDERED: ACETAMINOPHEN INJECTION 100 ML IVPB ONE (10:15)
[2024-03-25] MEDS ORDERED: FENTANYL CITRATE/PF 50 MCG/ML VIAL ONE (10:17)
[2024-03-25] MEDS ORDERED: PROPOFOL 20 ML ONE ×2 (10:18→10:46)
[2024-03-25] MEDS ORDERED: MIDAZOLAM HCL 2 MG/2 ML SINGLE DOSE VIAL ONE (10:18)
[2024-03-25] MEDS ORDERED: IBUPROFEN 600 MG TABLET (FP) PO PRN (10:59)
[2024-03-25] MEDS ORDERED: IBUPROFEN 800 MG/8 ML IJ IVPB PRN (10:59)
[2024-03-25] MEDS ORDERED: ELECTROLYTE-148 SOLN 1,000 ML IV SCH (11:00)
[2024-03-25 12:17] VITALS: RESP 16; TEMP 97.8
[2024-03-25 12:42] VITALS: BP 126/80; PULSE 89
== END 2024-03-25 12:40 | disposition home or self-care (01) ==
LOC: JASU-SURG 03:57
PROVIDERS: ATTEND Obstetrics & Gynecology
PROC: 0UB98ZZ Excision of Uterus, Via Natural or Artificial Opening Endoscopic (ICD-10-PCS; principal; 2024-03-25 09:30)
DX: N93.9 Abnormal uterine and vaginal bleeding, unspecified (principal); N84.0 Polyp of corpus uteri
CPT/HCPCS: 81025; 88305-TC; 94760; J0131

== ENCOUNTER 2025-04-09 10:26 | Emergency (ER) | payer BC ==
[2025-04-09 10:32] VITALS: BP 118/82; PULSE 85; RESP 15; TEMP 98.8; BMI 23.8
[2025-04-09 11:19] LABS: ABSOLUTE IMMATURE GRANULOCYTES 0.00 x10^3/uL (0.0-0.031); BASOPHILS # 0.03 x10^3/uL (0.01-0.08); EOSINOPHIL % 1.2 % (0.7-5.8); EOSINOPHILS # 0.07 x10^3/uL (0.04-0.36); MCHC 32.8 g/dl (32.2-35.5); MEAN CELL VOLUME 87.0 fl (79.4-94.8); MEAN PLT VOLUME 9.4 fl (9.4-12.3); MONOCYTE # 0.50 x10^3/uL (0.24-0.86); MONOCYTE % 8.6 % (4.7-12.5); RDW 12.5 % (12.1-16.8)
[2025-04-09 11:23] LABS: INR 0.99 (0.83-1.09); PROTHROMBIN TIME (PATIENT) 11.0 SEC (9.7-13.0)
[2025-04-09 11:26] LABS: ACTIVATED PTT 30.7 SECONDS (25.2-36.5)
[2025-04-09 11:33] LABS: ALK PHOS 63.0 U/L (45-117); CO2 27.0 mmol/L (21-32); CREATININE 0.6 mg/dl (0.6-1.3); GLUCOSE,RANDOM 99.0 mg/dl (74-106); SGOT/AST 13.0 U/L (15-37); SGPT/ALT 10.0 U/L (7-52); TOT PROT 6.9 g/dl (6.4-8.2)
== END 2025-04-09 13:15 | disposition home or self-care (01) ==
LOC: FER 10:26
DX: O03.9 Complete or unspecified spontaneous abortion without complication (principal)
CPT/HCPCS: 36415; 80053; 81003; 81015; 81025; 84702; 84703; 85025; 85610; 85730; 86850; 86900; 86901; 87086; 99283-25